=== PATIENT | female | born 1980 | race Caucasian/White ===

== ENCOUNTER 2020-06-14 10:01 | Emergency (ER) | payer OTHER ==
[2020-06-14] MEDS ORDERED: PREDNISONE 50 M50 MG PO (12:13)
[2020-06-14] MEDS ORDERED: CYCLOBENZAPRINE10 MG PO (12:13)
== END 2020-06-14 12:40 | disposition home or self-care (01) ==
LOC: ER1 10:01
DX: S39.012A Strain of muscle, fascia and tendon of lower back, initial encounter (principal); M54.42 Lumbago with sciatica, left side; F17.200 Nicotine dependence, unspecified, uncomplicated; Z88.0 Allergy status to penicillin; X50.9XXA Other and unspecified overexertion or strenuous movements or postures, initial encounter
CPT/HCPCS: 96372; 96374; 99283; J1100; J1885; J2360